=== PATIENT | male | born 1980 | race Caucasian/White ===

== ENCOUNTER 2017-07-25 14:20 | Inpatient (IN) | payer BC, OTHER ==
[~2017-07-25] VITALS: Ht 180.3 cm; Wt 111.1 kg
[2017-07-25] MEDS ORDERED: METHOCARBAMOL 750 MG TABLET PO PRN (19:15)
[2017-07-25] MEDS ORDERED: MIRALAX 17 GM POWD.PACK PO PRN (19:15)
[2017-07-25] MEDS ORDERED: LORAZEPAM 1 MG TABLET PO PRN ×3 (19:15→20:45)
[2017-07-25] MEDS ORDERED: DICYCLOMINE HCL 20 MG TABLET PO PRN (19:15)
[2017-07-25] MEDS ORDERED: MAG HYDROX/AL HYDROX/SIMETH 30 ML LIQUID UDC PO PRN (19:15)
[2017-07-25] MEDS ORDERED: LOPERAMIDE HCL 2 MG CAPSULE PO PRN ×2 (19:15)
[2017-07-25] MEDS ORDERED: MAGNESIUM HYDROXIDE 30 ML LIQUID UDC PO PRN (19:15)
[2017-07-25] MEDS ORDERED: ONDANSETRON 4 MG/2 ML VIAL IM PRN (19:15)
[2017-07-25] MEDS ORDERED: ACETAMINOPHEN 325 MG TABLET PO PRN (19:15)
[2017-07-25] MEDS ORDERED: BUPRENORPHINE HCL 2 MG TAB.SUBL SL PRN (19:15)
[2017-07-25] MEDS ORDERED: HYDROXYZINE PAMOATE 25 MG CAPSULE PO PRN (19:15)
[2017-07-25] MEDS ORDERED: ONDANSETRON ODT 4 MG TAB.RAPDIS SL PRN (19:15)
[2017-07-25] MEDS ORDERED: diphenhydrAMINE 50 MG CAPSULE PO PRN (19:15)
[2017-07-25] MEDS ORDERED: CLONIDINE HCL 0.1 MG TABLET PO PRN (19:15)
--- NOTE | 2017-07-25 19:30 | NUR ---
INTAKE ASSESSMENT CALLED BY INTAKE FOR PT ASSESSMENT. PT IS 36 Y/O MALE,A/A/O X 4.SPEECH IS CLEAR,AMBULATES WITH A STEADY GAIT,V/S ARE STABLE. B/P=127/77,HR=84,T=97.6,R=18,O2 SAT=97%.PT DENIES ANY ALLERGIES OR MEDICAL PROBLEMS.HE IS HERE TO DETOX FROM HEROIN,ALCOHOL AND METHAMPHETAMINES.PT IS IN A STABLE CONDITION TO PROCEED TO [facility].
[2017-07-25 20:20] LABS: BASOPHILS % (AUTO) 0.4 % (0.0-2.0); EOSINOPHILS # (AUTO) 0.4 K/uL (0.0-0.7); EOSINOPHILS % (AUTO) 5.7 % (0.0-7.0); HEMATOCRIT 41.8 % (36.7-47.1); HEMOGLOBIN 14.3 g/dL (12.5-16.3); LYMPHOCYTES % (AUTO) 30.3 % (20.5-51.5); MEAN CORPUSCULAR HEMOGLOBIN 29.5 uug (23.8-33.4); MEAN CORPUSCULAR HGB CONC 34 g/dL (32.5-36.3); MEAN CORPUSCULAR VOLUME 86.5 fL (73.0-96.2); MONOCYTES # (AUTO) 0.3 K/uL (2.0-10.0); MONOCYTES % (AUTO) 4.7 % (0.0-11.0); NEUTROPHILS # (AUTO) 3.8 K/uL (1.8-8.9); NEUTROPHILS % (AUTO) 58.9 % (38.5-71.5); PLATELET COUNT (AUTO) 190 K/uL (152-348); RED BLOOD CELL COUNT(AUTO) 4.84 MIL/uL (4.06-5.63); WHITE BLOOD COUNT (AUTO) 6.5 K/uL (3.6-10.2)
[2017-07-25 20:28] LABS: ETHANOL < 3 MG/DL (0-0)
[2017-07-25 20:31] LABS: ALANINE AMINOTRANSFERASE 26 U/L (16-63); ALKALINE PHOSPHATASE 97 U/L (50-136); ASPARTATE AMINOTRANSFERASE 14 U/L (15-37); BILIRUBIN,TOTAL 0.2 mg/dL (0.2-1.0); CARBON DIOXIDE 25 mmol/L (21-32); CHLORIDE 102 mmol/L (98-107); GLUCOSE 105 mg/dL (74-106); MAGNESIUM 2.1 mg/dL (1.8-2.4); POTASSIUM 3.9 mmol/L (3.5-5.1); TOTAL PROTEIN, SERUM 7.5 g/dL (6.4-8.2); UREA NITROGEN, BLOOD 16 mg/dL (7-18)
[2017-07-25] MEDS ORDERED: LORAZEPAM 2 MG/1 ML VIAL IM PRN (20:45)
[2017-07-25] MEDS ORDERED: THIAMINE HCL 200 MG/2 ML VIAL IM ONE (20:45)
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
[2017-07-25 21:08] LABS: *AMPHETAMINE, URINE POSITIVE (NEGATIVE); *BARBITURATE, URINE NEGATIVE (NEGATIVE); *CANNABINOID, URINE POSITIVE (NEGATIVE); *COCCAINE, URINE NEGATIVE (NEGATIVE); *OPIATE, URINE POSITIVE (NEGATIVE); *PHENCYCLIDINE SCREEN,URINE NEGATIVE (NEGATIVE)
[2017-07-25] MEDS: THIAMINE HCL 100 MG TABLET PO SCH (22:30)
[2017-07-25] MEDS ORDERED: IBUP-1955 PO (22:53)
[2017-07-25] MEDS ORDERED: IBUP200C5 PO (22:53)
[2017-07-25] MEDS ORDERED: TRINTELLIX (22:55)
[2017-07-26] VITALS: BP 129/61
--- NOTE | 2017-07-26 | NUR ---
COWS/CIWA DEFERRED; V/S REFUSED. PT IS RESTING IN BED WITH EYES CLOSED,SLEEPING COMFORTABLY.UNABLE TO ASSESS FOR COWS/CIWA AT THIS TIME.V/S REFUSED.BREATHING IS EVEN AND NON LABORED,NO S/S DISTRESS NOTED,ALL SAFETY MEASURES IN PLACE,CALL LIGHT WITHIN REACH.WILL CONTINUE TO MONITOR.
--- NOTE | 2017-07-26 | NUR ---
COWS/CIWA DEFERRED PT IS RESTING IN BED WITH EYES CLOSED,SLEEPING COMFORTABLY.UNABLE TO ASSESS FOR COWS/CIWA AT THIS TIME. BREATHING IS EVEN AND NON LABORED,NO S/S DISTRESS NOTED,ALL SAFETY MEASURES IN PLACE,CALL LIGHT WITHIN REACH.WILL CONTINUE TO MONITOR.
--- NOTE | 2017-07-26 06:44 | NUR ---
END OF SHIFT Pt is a 36 y/o male admitted to [facility] for medically supervised withdrawals from Opiates,Alcohol and Meth use.Pt is A/O X 4, denies any allergies or medical problems.Admitting COWS=3; CIWA=4.No PRN meds given last night.Pt slept 9 hrs; fluid intake was 797 mls; voided x 2; no B/M. Midnight and 0400 COWS/CIWA deferred due to pt being asleep.Pt to start on 4 day taper of Ativan and Subutex today.All safety measures in place with call light within reach;Pt endorse care to day shift nurse.
--- NOTE | 2017-07-26 07:32 | NUR ---
Start of shift note; Received report from night nurse. Patient is a 36 year old male admitted on 07/25/17 for ETOH/ Opiate withdrawals. Patient to start on Ativan and Subutex taper today. Patient appears anxious, diaphoretic, complaining of muscle aches and fatigue. Educated patient regarding the importance of compliance to treatment and medication regime, verbalized understanding. Encouraged patient to participate in group activities and therapies. All safety measures secured. Will continue to monitor patient.
[2017-07-26 08:00] VITALS: BP 129/79
[2017-07-26] MEDS: THIAMINE HCL 100 MG TABLET PO SCH (09:00)
[2017-07-26] MEDS ORDERED: TUBERCULIN,PURIF.PROT.DERIV. 5 TU/0.1 ML TEST ID ONE (09:00)
[2017-07-26] MEDS: BUPRENORPHINE HCL 2 MG TAB.SUBL SL SCH ×3 (09:00→21:52)
[2017-07-26] MEDS: FOLIC ACID 1 MG TABLET PO SCH (09:00)
[2017-07-26] MEDS: LORAZEPAM 1 MG TABLET PO SCH ×3 (09:00→21:52)
[2017-07-26] MEDS ORDERED: THIAMINE HCL 100 MG TABLET PO SCH (09:00)
--- NOTE | 2017-07-26 09:48 | NUR ---
Medication refusal; Patient is AOX4. Patient refused to take all due medications at this time. Patient stated " i don't need any medications right now". Educated patient regarding the importance of compliance to medication regime, verbalized understanding. Addendum: 07/26/17 at 0950 by NAYELI PINEDA LVN Will notify MD about medication refusal.
[2017-07-26 12:00] VITALS: BP 129/76
[2017-07-26 16:00] VITALS: BP 112/67
--- NOTE | 2017-07-26 18:24 | NUR ---
End of shift note; Patient is AOX4. Patient remained compliant with treatment plan and medication regime. Patient is anxious complaining of muscle aches, stomach cramps, fatigue, restlessness, diaphoresis. Patient's last COWS score is 12 and last CIWA score is 9 at 1600. Patient was started on Ativan and Subutex taper today. All safety measures secured. Met all needs.
--- NOTE | 2017-07-26 19:30 | NUR ---
START OF SHIFT Pt is a 36 y/o male admitted no 07/25/17 for ETOH, opiate and meth withdrawal. Pt started a 4 day Ativan and 4 day Subutex taper on 07/26/17, tolerating well. Last COWS 12 and CIWA 9 and no PRNs administered. Upon assessment pt laying in bed and presents with anxiety, lethargy, fatigue, sweats, restlessness, difficulty falling asleep, agitation, yawning, flat affect, unkempt room, dysphoria and anhedonia. Pt also complains of toothache 5/10. Medications due. Safety measures in place. Call light within reach. Will continue to monitor.
[2017-07-26 20:00] VITALS: BP 124/61
--- NOTE | 2017-07-26 21:52 | NUR ---
PRN BENADRYL ADMINISTRATION Pt requests sleep aid. Safety measures in place. Call light within reach. Will continue to monitor.
[2017-07-26] MEDS: IBUPROFEN 600 MG TABLET PO PRN (22:22)
--- NOTE | 2017-07-26 22:22 | NUR ---
PRN MOTRIN ADMINISTRATION Pt complains of a toothache on right side 08/11 that he has had for "a few days." Safety measures in place. Call light within reach. Will continue to monitor.
--- NOTE | 2017-07-26 22:52 | NUR ---
PRN BENADRYL REASSESSMENT Pt remains awake, laying in bed. Safety measures in place. Call light within reach. Will continue to monitor.
--- NOTE | 2017-07-26 23:22 | NUR ---
PRN MOTRIN REASSESSMENT Pt laying in bed with eyes closed medication noted effective. Respirations even and unlabored. Safety measures in place. Call light within reach. Will continue to monitor.
[2017-07-27] VITALS: BP 124/62
--- NOTE | 2017-07-27 | NUR ---
COWS/CIWA DEFERRED Pt laying in bed with eyes closed, COWS/CIWA deferred, to be assessed when pt is awake per orders. Respirations even and unlabored. Safety measures in place. Call light within reach. Will continue to monitor.
--- NOTE | 2017-07-27 04:15 | NUR ---
PRN TYLENOL, ATIVAN 2 MG AND ROBAXIN ADMINISTRATION Pt reports headache and toothache 4/10 and body aches 6/10. CIWA 13. Pt presents with anxiety, restlessness, sense of panic, headache. Safety measures in place. Call light within reach. Will continue to monitor.
--- NOTE | 2017-07-27 05:15 | NUR ---
PRN TYLENOL, ATIVAN AND ROBAXIN REASSESSMENT Pt laying in bed with eyes closed, medications noted effective. Safety measures in place. Call light within reach. Will continue to monitor.
[2017-07-27 05:33] VITALS: BP 136/74
--- NOTE | 2017-07-27 06:55 | NUR ---
END OF SHIFT Pt is a 36 y/o male admitted no 07/25/17 for ETOH, opiate and meth withdrawal. Pt started a 4 day Ativan and 4 day Subutex taper on 07/26/17, tolerating well. Pt presented with anxiety, lethargy, fatigue, sweats, restlessness, body aches, toothache, agitation, sense of panic, difficulty falling and staying asleep, yawning, flat affect, unkempt room, dysphoria and anhedonia. Pt woke up in middle of night with sense of panic and anxiety. Scheduled medications and PRN Benadryl, Motrin, Tylenol, Robaxin and Ativan 2 mg administered, effective in S/S of withdrawal as verbalized by pt. Pt slept 8 hours. Intake 1350 ml, void x 3, stool x 0. Safety measures in place. Call light within reach. Pts needs have been met. Endorsed to day shift nurse.
--- NOTE | 2017-07-27 07:27 | NUR ---
START OF SHIFT Pt is a 36 yr old male, AA&Ox4. Pt was admitted on 07/25/17 for medically supervised withdrawal from heroin/ETOH and meth and is on 4 day Subutex taper and 4 day Ativan taper as ordered. Received report from night clerk nurse. Pt received Benadryl PRN, Motrin PRN, Tylenol PRN, Robaxin PRN and Ativan PRN for s/s of w/d. medication was effective. Last CIWA score was 13 and COWS score was 10 at 0400. Pt slept for 8 hrs. Pt is currently in bed resting wtih respirations even and unlabored. Skin is intact, warm and moist to touch. Safety precautions observed. Call light is within reach. Will continue to monitor.
[2017-07-27 08:11] VITALS: BP 139/72
[2017-07-27] MEDS: FOLIC ACID 1 MG TABLET PO SCH (08:43)
[2017-07-27] MEDS: LORAZEPAM 1 MG TABLET PO SCH ×2 (08:43→12:07)
[2017-07-27] MEDS: THIAMINE HCL 100 MG TABLET PO SCH (08:43)
[2017-07-27] MEDS ORDERED: BUPRENORPHINE HCL 2 MG TAB.SUBL SL SCH ×2 (09:00→15:00)
[2017-07-27 12:10] LABS: HEPATITIS B SURFACE AG Negative (Negative)
[2017-07-27 12:23] VITALS: BP 150/84
--- NOTE | 2017-07-27 14:14 | NUR ---
Client was prompted to attend group counseling twice a day. Client expressed no interest in group counseling due to anxiety regarding his discharge and aftercare.
[2017-07-27] MEDS: IBUPROFEN 600 MG TABLET PO PRN (14:15)
--- NOTE | 2017-07-27 14:15 | NUR ---
MOTRIN PRN GIVEN Pt c/o tooth ache. Motrin 600mg PO PRN was given as ordered. Medication [place].
--- NOTE | 2017-07-27 15:15 | NUR ---
AMA NOTE Pt left AMA and refused to continue with treatment plan. Pt was educated by narrative writer the risks and benefits of leaving AMA, pt verbalized understanding but was adamant about leaving. Multiple staff members including nurses and case management attempted to reason with the pt without any success. Pt became agitated with staff and decided to leave the unit with his belongings down the stairs at 1458. No SI/ HI noted. Pt was in the lobby waiting for his valuables. manager hvac, DON and Label Stitcher attempted to reason with him again but pt refused to stay. Pt was offered community resources but pt refused to take the forms or sign the AMA forms. All belongings and valuables was given. Pt left facility AMA on 07/27/17 at 1514.
[2017-07-27] MEDS ORDERED: LORAZEPAM 1 MG TABLET PO SCH ×2 (17:00→21:00)
[2017-07-27] MEDS ORDERED: GABAPENTIN 300 MG CAPSULE PO SCH (21:00)
[2017-07-28] MEDS ORDERED: BUPRENORPHINE HCL 2 MG TAB.SUBL SL SCH (09:00)
[2017-07-28] MEDS ORDERED: LORAZEPAM 1 MG TABLET PO SCH (09:00)
[2017-07-29] MEDS ORDERED: BUPRENORPHINE HCL 2 MG TAB.SUBL SL SCH (09:00)
[2017-07-29] MEDS ORDERED: LORAZEPAM 1 MG TABLET PO SCH (09:00)
[2017-07-30] MEDS ORDERED: BUPRENORPHINE HCL 2 MG TAB.SUBL SL SCH (09:00)
[2017-07-30] MEDS ORDERED: LORAZEPAM 1 MG TABLET PO SCH (09:00)
== END 2017-07-27 15:14 | disposition left against medical advice (07) | DRG 894 ==
LOC: SRC 18:36
PROVIDERS: ADMIT Internal Medicine; ATTEND Internal Medicine
PROC: HZ2ZZZZ Detoxification Services for Substance Abuse Treatment (ICD-10-PCS; principal; 2017-07-25)
PROC: HZ31ZZZ Individual Counseling for Substance Abuse Treatment, Behavioral (ICD-10-PCS; 2017-07-27)
DX: F10.230 Alcohol dependence with withdrawal, uncomplicated (principal); F11.23 Opioid dependence with withdrawal; Y90.0 Blood alcohol level of less than 20 mg/100 ml; Z59.1 Inadequate housing; Z91.89 Other specified personal risk factors, not elsewhere classified; F17.210 Nicotine dependence, cigarettes, uncomplicated; F15.10 Other stimulant abuse, uncomplicated; F12.90 Cannabis use, unspecified, uncomplicated
CPT/HCPCS: 36415; 80307; 83735; 85025; 86580; 86592; 86705; 86803; 87340; 87806; A4663; G0480; Q0163